=== PATIENT | male | born 1960 ===

== ENCOUNTER → 2017-11-08 | Outpatient (CLI) | payer BC | LOC: RESP 20:40 | PROVIDERS: ATTEND Internal Medicine Clinical Cardiac Electrophysiology | DX: G47.33 Obstructive sleep apnea (adult) (pediatric) (principal); G47.37 Central sleep apnea in conditions classified elsewhere; G47.61 Periodic limb movement disorder; G47.36 Sleep related hypoventilation in conditions classified elsewhere; E66.9 Obesity, unspecified ==

== ENCOUNTER → 2018-01-29 | Outpatient (CLI) | payer BC ==
--- NOTE | 2018-01-29 16:59 | RADIOLOGY IMAGING REPORT ---
FACILITY: [facility] [place] PATIENT NAME: Zain Borges : 1960 MR: [id number] V: [id number] EXAM DATE: [id number] ORDERING PHYSICIAN: EV PULIDO TECHNOLOGIST: Location: [facility] - [place] Patient: Zain Borges : 1960 Visit/Account:[id number] Date of Sevice: 01/29/2018 EXAMINATION: Single Isotope SPECT Imaging with Exercise and Gated SPECT Imaging DATE OF EXAMINATION: 01/29/18 DATE OF INTERPRETATION: 01/29/18 REQUESTING PHYSICIAN: EV PULIDO INDICATION: The patient is a 57-year-old male evaluated for PAF. PROCEDURE: After informed consent the patient received an intravenous injection of 12.6 mCi of Tc-9 9m sestamibi followed at the appropriate time interval by rest imaging. The patient then exercised a ccording to the standard Micha protocol for 7 minutes 17 seconds achieving 8 METS. Resting heart rat e was 62 bpm with a peak heart rate of 144 bpm which is 89 % of maximal predicted heart rate for age . Blood pressure at rest was 139 / 91; blood pressure during exercise was 199 / 66. There was no ch est pain during exercise. Exercise was discontinued because of fatigue. Baseline EKG demonstrates S R. There were no diagnostic EKG changes of ischemia at peak exercise. Approximately one minute and 30 seconds prior to the termination of exercise, the patient received an intravenous injection of 29. 2 mCi of Tc-99m sestamibi followed by stress imaging. RAW DATA: Examination of the summed raw data revealed a good quality study. MYOCARDIAL PERFUSION: The tomographic images demonstrate normal perfusion rest & stress. GATED IMAGES: The gated images demonstrate normal regional wall motion and thickening. LVEF 59%. IMPRESSION: 1. Negative ETT for angina or ECG changes of ischemia at a good exercise level. 2. Normal myocardial perfusion scan. 3. Normal LV systolic function; LVEF 59%. 4. Based on the results of this exam, the patient appears to be at low risk for future cardiovascular events. Report Dictated By: Sajan Rosado MD at 01/29/2018 4:49 PM Report E-Signed By: Sajan Rosado MD at 01/29/2018 4:55 PM WSN:[id number]
== END ==
LOC: RESP 01:18
PROVIDERS: ATTEND Internal Medicine Clinical Cardiac Electrophysiology
DX: I48.0 Paroxysmal atrial fibrillation (principal)
CPT/HCPCS: 78452; 93017; A9500

== ENCOUNTER → 2018-08-01 | Outpatient (CLI) | payer BC ==
--- NOTE | 2018-08-05 22:27 | RT HOLTER TEST ---
FACILITY: [facility] PATIENT NAME: ARIAN ESCOBAR : [id number] MR: [id number] V: [id number] EXAM DATE: ORDERING PHYSICIAN: EV PULIDO TECHNOLOGIST: EMELIA Hook-up date: 2018-08-01 11:14:00 Duration: 47:17:00 Test Indications: AFIB Medications: N/A [id number] QRS complexes 728 Ventricular ectopics which represent <1 % of total QRS comp. 5044 Supraventricular ectopics which represent 1 % of total QRS comp. * Paced QRS complexes which represent % of total QRS comp. VENTRICULAR ECTOPY 726 Isolated 0 Bigeminal Cycles 1 Couplets 0 Runs 0 Beats in Runs * Beats LONGEST at * BPM at :: -- * Beats FASTEST at * BPM at :: -- SUPRAVENTRICULAR ECTOPY 2971 Isolated 777 Couplets 137 Runs 519 Beats in Runs 10 Beats LONGEST at 111 BPM at 09:20:46 2018-08-02 3 Beats FASTEST at 132 BPM at 10:46:33 2018-08-02 HEART RATES 48 MIN at 05:38:22 2018-08-02 113 AVG 146 MAX at 23:15:32 2018-08-02 LONGEST RR 2.992 secs at 07:30:23 2018-08-03 S-T LEVELS Channel 1 -12.800 mm MIN at 11:14:00 2018-08-01 -12.800 mm MAX at 11:14:00 2018-08-01 Channel 2 -12.800 mm MIN at 11:14:00 2018-08-01 -12.800 mm MAX at 11:14:00 2018-08-01 Channel 3 -12.800 mm MIN at 11:14:00 2018-08-01 -12.800 mm MAX at 11:14:00 2018-08-01 Atrial fibrillation dominant rythym throughout study. Atrial fibrillation with RVR noted during test. Infrequent isolated PVC noted. Confirmed by Michael Reyes ([id number]) on 08/05/2018 10:27:09 PM Referred By: Overread By: Michael Mar
== END ==
LOC: RESP 10:54
PROVIDERS: ATTEND Internal Medicine Clinical Cardiac Electrophysiology
DX: I48.0 Paroxysmal atrial fibrillation (principal)
CPT/HCPCS: 93225; 93226

== ENCOUNTER 2018-08-08 04:28 | Emergency (ER) | payer BC ==
--- NOTE | 2018-08-08 04:42 | ER Report ---
History and Physical Time Seen By MD: 04:42 Hx. of Stated Complaint: patient having left flank pain that wokehim up around midnight. patient states he has felt like he has had to urinate more frequently. HPI/ROS CHIEF COMPLAINT: flank pain HISTORY OF PRESENT ILLNESS: This is a 58 year old male. He is having left sided flank pain. Awoke him from sleep tonight. Has a feeling of needing to urinate but only going small amounts, however this has been present for longer, several weeks. Also with some constipation. No fevers or chills. No abdominal pain. No chest pain or shortness of breath. Never had this previously. Tried taking Ibuprofen at home, without relief. Allergies: Coded Allergies: No Known Drug Allergies (Unverified , 08/08/18) Home Meds Active Scripts Ketorolac Tromethamine (KETOROLAC TROMETHAMINE) 10 Mg Tab, 10 MG PO Q6H PRN for PAIN, #12 TAB 0 Refills Prov:GOYO ALLEN MD 08/08/18 Ondansetron (ONDANSETRON ODT) 4 Mg Tab.rapdis, 4 MG PO Q6H PRN for NAUSEA/VOMITING, #20 TAB 0 Refills Prov:GOYO ALLEN MD 08/08/18 Tamsulosin Hcl (FLOMAX) 0.4 Mg Cap.er.24h, 0.4 MG PO QDAY, #14 CAP 0 Refills Prov:GOYO ALLEN MD 08/08/18 Hydrocodone Bit/Acetaminophen (HYDROCODON-ACETAMINOPHEN 5-325) 1 Each Tablet, 1 EACH PO Q4H PRN for PAIN, #12 TAB 0 Refills Prov:GOYO ALLEN MD 08/08/18 Reported Medications Ubidecarenone (Coenzyme Q-10) 30 Mg Capsule, PO QDAY 08/08/18 Cholecalciferol (Vitamin D3) (VITAMIN D3) 1,000 Unit Tablet, 1000 UNIT PO QDAY, TAB 08/08/18 Multivitamin (MULTI-VITAMIN DAILY) 1 Each Tablet, 1 EACH PO QDAY 08/08/18 Metoprolol Tartrate (METOPROLOL TARTRATE) 25 Mg Tablet, 100 TAB PO QDAY, TAB 08/08/18 Atorvastatin Calcium (LIPITOR) 20 Mg Tablet, 1 TAB PO QDAY, TAB 08/08/18 Apixaban (ELIQUIS) 2.5 Mg Tablet, 2.5 MG PO BID 08/08/18 Discontinued Scripts Ondansetron (ONDANSETRON ODT) 4 Mg Tab.rapdis, 4 MG PO Q6H PRN for NAUSEA/VOMITING, #15 TAB 0 Refills Prov:GOYO ALLEN MD 08/08/18 Ketorolac Tromethamine (KETOROLAC TROMETHAMINE) 10 Mg Tab, 10 MG PO Q6H PRN for PAIN, #12 TAB 0 Refills Prov:GOYO ALLEN MD 08/08/18 Tamsulosin Hcl (FLOMAX) 0.4 Mg Cap.er.24h, 0.4 MG PO QDAY, #14 CAP 0 Refills Prov:GOYO ALLEN MD 08/08/18 Reviewed Nurses Notes: Yes Constitutional Vital Sign - Last 24 Hours 08/08/18 08/08/18 08/08/18 08/08/18 04:34 05:00 05:30 06:00 Temp 97.8 Pulse 117 108 111 108 Resp 24 B/P (MAP) 142/114 120/81 (94) 115/91 (99) 115/93 (100) Pulse Ox 90 90 90 95 O2 Delivery Room Air Room Air Room Air Nasal Cannula Physical Exam General Appearance: The patient is alert. No acute distress. Non-toxic in appearance. Eyes: Pupils are equal, round. No pallor, injection or icterus. ENT: Mucous membranes are moist. Normal oral mucosa. Respiratory: Lungs are clear to auscultation. Cardiovascular: Regular rate and rhythm. No murmurs, gallops or rubs. Normal capillary refill. Gastrointestinal: Abdomen is soft and non tender. Nondistended. Normal active bowel sounds. Mild left costovertebral angle tenderness with percussion. Neurological: Alert and oriented x3. No focal neurologic deficits Skin: Warm and dry. Musculoskeletal: Extremities are nontender. No tenderness in palpation of the cervical, thoracic and lumbar spine. DIFFERENTIAL DIAGNOSIS: After history and physical exam, differential diagnosis was considered for flank pain including but not limited to musculoskeletal causes, kidney stone, pyelonephritis, and intra-abdominal causes such as diverticulitis and appendicitis. Medical Decision Making Data Points Result Diagram: 08/08/18 0445 08/08/18 0445 Laboratory Hematology Test 08/08/18 04:32 08/08/18 04:45 Urine Color Yellow Urine Clarity Cloudy Urine pH 6.0 pH (4.8-9.5) Urine Specific [place] 1.019 Urine Protein 100 mg/dL (NEGATIVE) Urine Glucose (UA) Negative mg/dL (NEGATIVE) Urine Ketones Negative mg/dL (NEGATIVE) Urine Blood Large (NEGATIVE) Urine Nitrite Negative (NEGATIVE) Urine Bilirubin Negative (NEGATIVE) Urine Urobilinogen Negative mg/dL (0.2-1.9) Urine Leukocyte Esterase Negative (NEGATIVE) Urine RBC 2877 /HPF (0-2/HPF) Urine WBC 48 /HPF (0-5/HPF) Urine Squamous Epithelial Cells None /LPF (</=FEW) Urine Bacteria Negative /HPF (NONE-FEW) Urine Mucus Few /HPF (NONE-FEW) Urine Yeast (Budding) Few /HPF Red Blood Count 5.49 M/uL (4.00-5.60) Mean Corpuscular Volume 94.9 fL (80.0-96.0) Mean Corpuscular Hemoglobin 31.9 pg (26.0-33.0) Mean Corpuscular Hemoglobin Concent 33.7 g/dL (32.0-36.0) Red Cell Distribution Width 13.3 % (11.5-14.5) Mean Platelet Volume 6.7 fL (7.2-11.1) Neutrophils (%) (Auto) 46.1 % (39.4-72.5) Lymphocytes (%) (Auto) 43.0 % (17.6-49.6) Monocytes (%) (Auto) 6.6 % (4.1-12.4) Eosinophils (%) (Auto) 3.4 % (0.4-6.7) Basophils (%) (Auto) 0.9 % (0.3-1.4) Nucleated RBC Relative Count (auto) 0.0 /100WBC Neutrophils # (Auto) 4.1 K/uL (2.0-7.4) Lymphocytes # (Auto) 3.9 K/uL (1.3-3.6) Monocytes # (Auto) 0.6 K/uL (0.3-1.0) Eosinophils # (Auto) 0.3 K/uL (0.0-0.5) Basophils # (Auto) 0.1 K/uL (0.0-0.1) Nucleated RBC Absolute Count (auto) 0.00 K/uL Sodium Level 139 mmol/L (137-145) Potassium Level 4.2 mmol/L (3.5-5.0) Chloride Level 106 mmol/L (98-107) Carbon Dioxide Level 24 mmol/L (22-30) Blood Urea Nitrogen 14 mg/dl (9-21) Creatinine 1.20 mg/dl (0.66-1.25) Glomerular Filtration Rate Calc > 60.0 Random Glucose 135 mg/dl (75-110) Calcium Level 10.7 mg/dl (8.4-10.2) Total Bilirubin 0.8 mg/dl (0.2-1.3) Aspartate Amino Transf (AST/SGOT) 38 U/L (0-35) Alanine Aminotransferase (ALT/SGPT) 44 U/L (0-56) Alkaline Phosphatase 73 U/L (0-126) Total Protein 6.9 g/dl (6.3-8.2) Albumin 3.9 g/dl (3.5-5.0) Chemistry Test 08/08/18 04:32 08/08/18 04:45 Urine Color Yellow Urine Clarity Cloudy Urine pH 6.0 pH (4.8-9.5) Urine Specific [place] 1.019 Urine Protein 100 mg/dL (NEGATIVE) Urine Glucose (UA) Negative mg/dL (NEGATIVE) Urine Ketones Negative mg/dL (NEGATIVE) Urine Blood Large (NEGATIVE) Urine Nitrite Negative (NEGATIVE) Urine Bilirubin Negative (NEGATIVE) Urine Urobilinogen Negative mg/dL (0.2-1.9) Urine Leukocyte Esterase Negative (NEGATIVE) Urine RBC 2877 /HPF (0-2/HPF) Urine WBC 48 /HPF (0-5/HPF) Urine Squamous Epithelial Cells None /LPF (</=FEW) Urine Bacteria Negative /HPF (NONE-FEW) Urine Mucus Few /HPF (NONE-FEW) Urine Yeast (Budding) Few /HPF White Blood Count 9.0 k/uL (4.5-11.0) Red Blood Count 5.49 M/uL (4.00-5.60) Hemoglobin 17.5 g/dL (14.0-18.0) Hematocrit 52.1 % (42.0-52.0) Mean Corpuscular Volume 94.9 fL (80.0-96.0) Mean Corpuscular Hemoglobin 31.9 pg (26.0-33.0) Mean Corpuscular Hemoglobin Concent 33.7 g/dL (32.0-36.0) Red Cell Distribution Width 13.3 % (11.5-14.5) Platelet Count 338 K/uL (150-450) Mean Platelet Volume 6.7 fL (7.2-11.1) Neutrophils (%) (Auto) 46.1 % (39.4-72.5) Lymphocytes (%) (Auto) 43.0 % (17.6-49.6) Monocytes (%) (Auto) 6.6 % (4.1-12.4) Eosinophils (%) (Auto) 3.4 % (0.4-6.7) Basophils (%) (Auto) 0.9 % (0.3-1.4) Nucleated RBC Relative Count (auto) 0.0 /100WBC Neutrophils # (Auto) 4.1 K/uL (2.0-7.4) Lymphocytes # (Auto) 3.9 K/uL (1.3-3.6) Monocytes # (Auto) 0.6 K/uL (0.3-1.0) Eosinophils # (Auto) 0.3 K/uL (0.0-0.5) Basophils # (Auto) 0.1 K/uL (0.0-0.1) Nucleated RBC Absolute Count (auto) 0.00 K/uL Glomerular Filtration Rate Calc > 60.0 Calcium Level 10.7 mg/dl (8.4-10.2) Total Bilirubin 0.8 mg/dl (0.2-1.3) Aspartate Amino Transf (AST/SGOT) 38 U/L (0-35) Alanine Aminotransferase (ALT/SGPT) 44 U/L (0-56) Alkaline Phosphatase 73 U/L (0-126) Total Protein 6.9 g/dl (6.3-8.2) Albumin 3.9 g/dl (3.5-5.0) Urinalysis Test 08/08/18 04:32 Urine Color Yellow Urine Clarity Cloudy Urine pH 6.0 pH (4.8-9.5) Urine Specific [place] 1.019 Urine Protein 100 mg/dL (NEGATIVE) Urine Glucose (UA) Negative mg/dL (NEGATIVE) Urine Ketones Negative mg/dL (NEGATIVE) Urine Blood Large (NEGATIVE) Urine Nitrite Negative (NEGATIVE) Urine Bilirubin Negative (NEGATIVE) Urine Urobilinogen Negative mg/dL (0.2-1.9) Urine Leukocyte Esterase Negative (NEGATIVE) Urine RBC 2877 /HPF (0-2/HPF) Urine WBC 48 /HPF (0-5/HPF) Urine Squamous Epithelial Cells None /LPF (</=FEW) Urine Bacteria Negative /HPF (NONE-FEW) Urine Mucus Few /HPF (NONE-FEW) Urine Yeast (Budding) Few /HPF EKG/Imaging Imaging ABDOMEN/PELVIS W/O CONTRAST HISTORY: Flank pain. COMPARISON: None. TECHNIQUE: Axial images were obtained from the lung bases through the symphysis pubis without intravenous contrast. Sagittal and coronal reformats were perf ormed. One of the following dose optimization techniques was utilized in the performance of this exam: Automated exposure control; adjustment of the mA and/or kV according to the patient's size; or use of an iterative reconstruction technique. Specific details can be referenced in the facility's radiology CT exam operational policy. CONTRAST: None. FINDINGS: Lower chest: There is minimal atelectasis. Heart is mildly enlarged. There is a trace physiologic pericardial effusion. Liver: Liver is diffusely decreased in attenuation, compatible with hepatic steatosis. Gallbladder/biliary: Normal. Pancreas: Normal. Spleen: Normal. Adrenals: Normal. Kidneys/ureters/bladder: There is a 5 mm obstructing calculus at the left ureterovesical junction (image 146 series 2). It causes mild left hydronephrosis and hydroureter. There is mild left perinephric and periureteral stranding. There are 2 nonobstructing calculi in the left kidney. The larger measures 3 mm. There is minimal right perinephric stranding. No hydronephrosis. The right ureter and the bladder are normal. GI/mesentery/peritoneal cavity: There is no bowel obstruction. There is no wall thickening or pericolonic stranding. The appendix is normal. There is pancolonic diverticulosis without diverticulitis. Vessels: Minimal atherosclerosis. No aneurysm. Nodes: Mildly enlarged precaval node (image 49 series 2) measures 1.2 cm short axis diameter. No other enlarged lymph nodes. Pelvis: Prostate is normal in size. Right hydrocele. Bones/vertebra/soft tissues: There is a tiny fat-containing umbilical hernia. There is mild dependent subcutaneous edema overlying the lower thoracic spine and the lumbar spine. There are few vertebral hemangiomas. Vertebral body heights are maintained. No listhesis. There is mild degenerative change of the spine. There is mild degenerative change of the hips. There is benign-appearing mixed attenuation lesion at the lateral left femoral head. IMPRESSION: 1. 5 mm obstructing calculus at the left ureterovesical junction causes mild left hydronephrosis and hydroureter. 2. Nonobstructing left nephrolithiasis. 3. Mildly enlarged precaval node of uncertain etiology but may be reactive. 4. Right hydrocele. 5. Mild cardiomegaly. Report Dictated By: Rosario Chung at 08/08/2018 6:02 AM ED Course/Re-evaluation Clinical Indication for ER IV: Hydration, IV Access ED Course Initially did not want any pain medicine, but pain worsened again and he had good relief from Morphine 4mg IV, Toradol 30mg IV and then some Zofran for nausea. Urinalysis with a lot of blood. CT with stone as noted. Home treatment as noted below. Decision to Disposition Date: Aug 08, 2018 Decision to Disposition Time: 06:26 Depart Departure Latest Vital Signs Vital Signs Date Time Temp Pulse Resp B/P (MAP) Pulse Ox O2 Delivery O2 Flow Rate FiO2 08/08/18 06:00 108 115/93 (100) 95 Nasal Cannula 08/08/18 04:34 97.8 24 Impression: Primary Impression: Kidney stone Condition: Improved Disposition: HOME OR SELF-CARE Referrals: MICHELA ZAPIEN (PCP) New Scripts Ketorolac Tromethamine (KETOROLAC TROMETHAMINE) 10 Mg Tab 10 MG PO Q6H PRN for PAIN, #12 TAB 0 Refills Prov: GOYO ALLEN MD 08/08/18 Ondansetron (ONDANSETRON ODT) 4 Mg Tab.rapdis 4 MG PO Q6H PRN for NAUSEA/VOMITING, #20 TAB 0 Refills Prov: GOYO ALLEN MD 08/08/18 Tamsulosin Hcl (FLOMAX) 0.4 Mg Cap.er.24h 0.4 MG PO QDAY, #14 CAP 0 Refills Prov: GOYO ALLEN MD 08/08/18 Hydrocodone Bit/Acetaminophen (HYDROCODON-ACETAMINOPHEN 5-325) 1 Each Tablet 1 EACH PO Q4H PRN for PAIN, #12 TAB 0 Refills Prov: GOYO ALLEN MD 08/08/18 Patient Instructions: Kidney Stones (ED) GOYO ALLEN MD Aug 08, 2018 04:42
[2018-08-08] MEDS ORDERED: APIX2.5T PO (04:47)
[2018-08-08] MEDS ORDERED: ATOR20TA22 PO (04:47)
[2018-08-08] MEDS ORDERED: UBID30CA PO (04:47)
[2018-08-08] MEDS ORDERED: METO25TA93 PO (04:47)
[2018-08-08] MEDS ORDERED: MULT1TAB54 PO (04:47)
[2018-08-08] MEDS ORDERED: CHOL10005 PO (04:47)
[2018-08-08] MEDS ORDERED: NS(*) 0.9% 1000 ML BAG 1,000 ML IV ONE (04:50)
[2018-08-08 04:59] LABS: PLATELET COUNT, AUTOMATED 338 K/uL (150-450)
[2018-08-08] MEDS ORDERED: MORPHINE 4 MG/ML SDV IVP ONE (05:10)
[2018-08-08] MEDS ORDERED: KETOROLAC 30 MG/ML VIAL IVP ONE (05:10)
[2018-08-08] MEDS ORDERED: ONDANSETRON 4 MG/2 ML VIAL IVP ONE (05:10)
[2018-08-08 06:00] VITALS: BP 115/93
--- NOTE | 2018-08-08 06:16 | RADIOLOGY IMAGING REPORT ---
FACILITY: [facility] - [place] PATIENT NAME: Zain Borges : 1960 MR: [id number] V: [id number] EXAM DATE: ORDERING PHYSICIAN: GOYO ALLEN TECHNOLOGIST: Location: [facility] Patient: Zain Borges : 1960 Visit/Account:[id number] Date of Sevice: 08/08/2018 ABDOMEN/PELVIS W/O CONTRAST HISTORY: Flank pain. COMPARISON: None. TECHNIQUE: Axial images were obtained from the lung bases through the symphysis pubis without intrave nous contrast. Sagittal and coronal reformats were performed. One of the following dose optimization techniques was utilized in the performance of this exam: Autom ated exposure control; adjustment of the mA and/or kV according to the patient's size; or use of an i terative reconstruction technique. Specific details can be referenced in the facility's radiology CT exam operational policy. CONTRAST: None. FINDINGS: Lower chest: There is minimal atelectasis. Heart is mildly enlarged. There is a trace physiologic per icardial effusion. Liver: Liver is diffusely decreased in attenuation, compatible with hepatic steatosis. Gallbladder/biliary: Normal. Pancreas: Normal. Spleen: Normal. Adrenals: Normal. Kidneys/ureters/bladder: There is a 5 mm obstructing calculus at the left ureterovesical junction (im age 89 series 2). It causes mild left hydronephrosis and hydroureter. There is mild left perinephric and periureteral stranding. There are 2 nonobstructing calculi in the left kidney. The larger measur es 3 mm. There is minimal right perinephric stranding. No hydronephrosis. The right ureter and the bl adder are normal. GI/mesentery/peritoneal cavity: There is no bowel obstruction. There is no wall thickening or pericol onic stranding. The appendix is normal. There is pancolonic diverticulosis without diverticulitis. Vessels: Minimal atherosclerosis. No aneurysm. Nodes: Mildly enlarged precaval node (image 49 series 2) measures 1.2 cm short axis diameter. No othe r enlarged lymph nodes. Pelvis: Prostate is normal in size. Right hydrocele. Bones/vertebra/soft tissues: There is a tiny fat-containing umbilical hernia. There is mild dependent subcutaneous edema overlying the lower thoracic spine and the lumbar spine. There are few vertebral hemangiomas. Vertebral body heights are maintained. No listhesis. There is mild degenerative change o f the spine. There is mild degenerative change of the hips. There is benign-appearing mixed attenuati on lesion at the lateral left femoral head. IMPRESSION: 1. 5 mm obstructing calculus at the left ureterovesical junction causes mild left hydronephrosis and hydroureter. 2. Nonobstructing left nephrolithiasis. 3. Mildly enlarged precaval node of uncertain etiology but may be reactive. 4. Right hydrocele. 5. Mild cardiomegaly. Report Dictated By: Rosario Chung at 08/08/2018 6:02 AM Report E-Signed By: Rosario Chung at 08/08/2018 6:12 AM WSN:[id number]
[2018-08-08] MEDS ORDERED: TAMS0.4C25 PO ×2 (06:27→06:28)
[2018-08-08] MEDS ORDERED: LOR5/325 PO (06:27)
[2018-08-08] MEDS ORDERED: ONDA4TAB9 PO ×2 (06:27→06:28)
[2018-08-08] MEDS ORDERED: KET10 PO ×2 (06:27→06:28)
[2018-08-08] MEDS ORDERED: ACET/HYDROC 5/325MG TH ER ONLY 2 TAB/BOTTLE PO ONE (06:30)
[2018-08-08] MEDS ORDERED: ONDANSETRON 4 MG ODT TH SL ONE (06:30)
[2018-08-08] MEDS ORDERED: TAMSULOSIN HCL 0.4 MG CAP PO ONE (06:30)
[2018-08-08] MEDS ORDERED: KETOROLAC TROM 10 MG TAB TH PO ONE (06:30)
== END 2018-08-08 06:45 | disposition home or self-care (01) ==
LOC: ER 05:34
DX: N13.2 Hydronephrosis with renal and ureteral calculous obstruction (principal); N13.4 Hydroureter
CPT/HCPCS: 74176; 81001; 85025; 87088; 96361; 96374; 96375; 99284; J1885; J2270; J2405; J7030; S0119; 82040; 82247; 82310; 82374; 82435; 82565; 82947; 84075; 84132; 84155; 84295; 84450; 84460; 84520